=== PATIENT | male | born 2000 | race Caucasian/White ===

== ENCOUNTER 2025-04-22 17:24 | Emergency (ER) | payer OTHER ==
[~2025-04-22] VITALS: Ht 185.4 cm; Wt 100.0 kg
[2025-04-22] MEDS ORDERED: MORPHINE SULFATE 4 MG/ML VIAL IV ONE (18:00)
[2025-04-22] MEDS ORDERED: ondansetron HCL 4 MG/2 ML VIAL IV ONE (18:00)
[2025-04-22 18:01] LABS: BASOPHILS 0.3 % (0.2-1.2); EOSINOPHILS 0.2 % (0.8-7.0); HEMATOCRIT 45.4 % (40.1-51.0); HEMOGLOBIN 15.9 g/dL (13.7-17.5); LYMPHOCYTES 16.2 % (21.8-53.1); MCH 30.8 PG (25.7-32.2); MCV 87.8 fL (79.0-92.2); NEUTROPHILS 75.3 % (34.0-67.9); PLATELET COUNT 182 K/uL (163-337); RBC 5.17 M/uL (4.63-6.08)
[2025-04-22 18:16] LABS: ALBUMIN 4.4 g/dL (3.4-5.0); ALBUMIN/GLOBULIN RATIO 1.33 (1.1-2.4); ALCOHOL, MEDICAL <3 ng/dL (<3); ALKALINE PHOSPHATASE 90 U/L (46-116); ALT (SGPT) 41 U/L (14-59); ANION GAP 9.7 (7-21); AST (SGOT) 37 U/L (15-37); BILIRUBIN, TOTAL 0.9 mg/dL (0.2-1.0); BUN/CREATININE RATIO 10.65 (6.0-28.6); CALCIUM 9.5 mg/dL (8.5-10.1); CARBON DIOXIDE 31 mmol/L (21-32); CHLORIDE 101 mmol/L (98-107); CREATININE, SERUM 1.22 mg/dL (0.70-1.30); GLOMERULAR FILTRATION RATE,EST 84 mL/min (>60); POTASSIUM 3.7 mmol/L (3.5-5.1); PROTEIN, TOTAL 7.7 g/dL (6.4-8.2); UREA NITROGEN 13 mg/dL (7-18)
[2025-04-22] MEDS ORDERED: IBU600 MG PO (19:01)
[2025-04-22] MEDS ORDERED: HYDROCODON-ACE1 EA10 PO (19:01)
[2025-04-22 19:18] VITALS: BP 127/69
== END 2025-04-22 19:11 | disposition home or self-care (01) ==
LOC: ED 17:24
PROVIDERS: Emergency Medicine
DX: S33.5XXA Sprain of ligaments of lumbar spine, initial encounter (principal); V97.22XA Parachutist injured on landing, initial encounter
CPT/HCPCS: 36415; 71260; 72125; 74177; 80053; 85025; 96375; 99284-25; G0480; J2270; J2405; Q9967